=== PATIENT | female | born 1975 | race Caucasian/White ===

== ENCOUNTER → 2017-07-11 | Outpatient (CLI) | payer OTHER ==
[~2017-07-11] MED LIST: BUSP10; CITA20; CYCL10; GABA600 PO; IBUP600; INDO50; METR500; OMEPRAZOLE MAGN20 MG
[2017-07-11 15:06] LABS: Specimen Source CC
[2017-07-12 13:38] LABS: Source CC
== END | disposition home or self-care (01) ==
LOC: LAB 15:04
PROVIDERS: Family Medicine
DX: A54.9 Gonococcal infection, unspecified (principal); R30.0 Dysuria
CPT/HCPCS: 87086; 87491; 87591

== ENCOUNTER → 2017-07-24 | Outpatient (CLI) | payer OTHER ==
[2017-07-24 12:47] LABS: Specimen Source URINE
[2017-07-25 04:26] LABS: Source Urine
== END ==
LOC: LAB 12:43
PROVIDERS: Family Medicine
DX: Z11.3 Encounter for screening for infections with a predominantly sexual mode of transmission (principal); R10.2 Pelvic and perineal pain
CPT/HCPCS: 87086; 87491; 87591

== ENCOUNTER 2017-08-09 09:27 | Day surgery (SDC) | payer OTHER ==
[~2017-08-09] VITALS: Ht 157.5 cm; Wt 55.0 kg
== END 2017-08-09 14:12 | disposition home or self-care (01) ==
LOC: ORSCSDS 09:27
PROVIDERS: Orthopaedic Surgery
PROC: 01N50ZZ Release Median Nerve, Open Approach (ICD-10-PCS; principal; 2017-08-09 10:45)
DX: G56.02 Carpal tunnel syndrome, left upper limb (principal); F41.8 Other specified anxiety disorders; Z87.891 Personal history of nicotine dependence; Z79.899 Other long term (current) drug therapy
CPT/HCPCS: J0171; J0690; J2250

== ENCOUNTER 2020-05-16 08:30 | Emergency (ER) | payer OTHER ==
[~2020-05-16] VITALS: Ht 157.5 cm; Wt 54.4 kg
== END 2020-05-16 10:16 | disposition home or self-care (01) ==
LOC: ER 08:30
DX: S93.602A Unspecified sprain of left foot, initial encounter (principal); Z79.899 Other long term (current) drug therapy; Z87.891 Personal history of nicotine dependence; Z88.5 Allergy status to narcotic agent; W19.XXXA Unspecified fall, initial encounter
CPT/HCPCS: 73630; 99283-25